=== PATIENT | male | born 1950 | race Caucasian/White ===

== ENCOUNTER 2016-05-23 20:22 | Inpatient (IN) | payer OTHER ==
[~2016-05-23] VITALS: Ht 177.8 cm; Wt 92.9 kg
[~2016-05-23 20:22] MED LIST: ADVIL200 MG PO; DIPHTHERIA TOXOID IM; GLUCOSAMINE1000 MG PO; IBUPROFEN100 M2 PO; LOW DOSE ASPIRI81 M1 PO; METOPROLOL TART25 MG PO; PREDNISONE5 MG PO; TETANUS TOXOID IM; XARELTO20 MG PO
[2016-05-23 20:50] LABS: CHLORIDE 105 mEq/L (99-109); POTASSIUM 3.8 mEq/L (3.7-5.4); SODIUM 138 mEq/L (136-147)
[2016-05-23 20:52] LABS: GLUCOSE 134 mg/dL (70-99)
[2016-05-23 20:53] LABS: ANION GAP 12 MEQ/L (2-14)
[2016-05-23 20:56] LABS: ALKALINE PHOSPHATASE 51 IU/L (3-129); GFR ESTIMATE (CALCULATED) > 59 mL/min/
[2016-05-23 20:57] LABS: UREA NITROGEN (BUN) 18 mg/dL (9-23)
[2016-05-23 21:10] LABS: HEMATOCRIT 44.3 % (38.0-50.0); MCH 32.4 PG (29.0-34.0); MCHC 36.8 G/DL (30.0-36.0); MCV 88.1 FL (86-99); MEAN PLAT.VOLUME 8.1 uM^3 (9.0-12.4); PLATELET COUNT 272 K/uL (156-360); RBC DIS.WIDTH-CV 12.5 % (11.8-14.6); RBC DIS.WIDTH-SD 39.5 % (39-53); RED BLOOD COUNT 5.03 M/uL (4.00-5.50); WHITE BLOOD COUNT 11.7 K/uL (4.1-10.2)
[2016-05-23 21:47] LABS: ADD MIUA? YES; BILIRUBIN NEGATIVE; BLOOD SMALL; COLOR YELLOW ((YELLOW)); GLUCOSE (STRIP) NEGATIVE; KETONES NEGATIVE; LEUKOCYTES NEGATIVE; NITRITE NEGATIVE; PROTEIN (STRIP) NEGATIVE; SPECIFIC GRAVITY 1.015 (1.000-1.030); UROBILINOGEN 0.2 MG/DL (0.2-1.0)
[2016-05-23 21:54] LABS: LIPASE 35 U/L (1.0-51.0)
[2016-05-23 21:58] LABS: BACTERIA NONE SEEN; CASTS NONE SEEN /LPF; CRYSTALS NONE SEEN; EPITHELIAL CELLS NONE SEEN; MUCUS NONE SEEN; RED BLOOD CELLS RARE /HPF (0-5); UCUL ADDED? NO; WHITE BLOOD CELLS NONE SEEN /HPF (0-5)
[2016-05-24] VITALS (7 sets, daily range): BP systolic 111–140; BP diastolic 69–89
[2016-05-24 02:51] LABS: METH RESISTANT S AUREUS PCR NEGATIVE (NEGATIVE)
[2016-05-24 02:55] LABS: PROBE CHECK PASS; SPECIMEN PROCESSING CONTROL PASS
[2016-05-25 04:17] VITALS: BP 123/68
[2016-05-25 07:46] LABS: BASOPHIL COUNT 0.1 K/uL (0-0.1); EOSINOPHIL (%) 2.6 % (0-5); EOSINOPHIL COUNT 0.2 K/uL (0-0.3); HEMATOCRIT 40.5 % (38.0-50.0); IMMATURE GRANULOCYTE (%) 0.2 % (0.0-0.7); LYMPHOCYTE COUNT 2.3 K/uL (1.0-2.8); MCH 32.2 PG (29.0-34.0); MCHC 35.3 G/DL (30.0-36.0); MCV 91.2 FL (86-99); MEAN PLAT.VOLUME 8.7 uM^3 (9.0-12.4); MONOCYTE (%) 10.7 % (3-12); MONOCYTE COUNT 0.9 K/uL (0-0.8); NEUTROPHIL (%) 57.1 % (45-76); NEUTROPHIL COUNT 4.6 K/uL (1.8-6.4); PLATELET COUNT 241 K/uL (156-360); RBC DIS.WIDTH-CV 12.7 % (11.8-14.6); RBC DIS.WIDTH-SD 42.6 % (39-53); RED BLOOD COUNT 4.44 M/uL (4.00-5.50)
[2016-05-25 07:50] LABS: WHITE BLOOD COUNT 8.1 K/uL (4.1-10.2)
[2016-05-25 08:00] VITALS: BP 138/74
[2016-05-25 08:02] LABS: ANION GAP 7 MEQ/L (2-14); CHLORIDE 108 MEQ/L (99-109); GFR ESTIMATE (CALCULATED) > 59 mL/min/; POTASSIUM 3.9 MEQ/L (3.7-5.4); SAMPLE HEMOLYSIS CHECK 0; SAMPLE ICTERIC CHECK 0; SAMPLE LIPEMIA CHECK 0; SODIUM 141 MEQ/L (136-147); UREA NITROGEN (BUN) 11 mg/dL (9-23)
[2016-05-25 08:04] LABS: GLUCOSE 98 mg/dL (70-99)
[2016-05-25 12:00] VITALS: BP 134/76
== END 2016-05-25 15:45 | disposition home or self-care (01) | DRG 389 ==
LOC: EME 20:22 → 2EASTP 23:45 → EDOF 23:45 → 2EASTP 05-24 01:18
PROVIDERS: Hospitalist; Internal Medicine
DX: K56.60 Unspecified intestinal obstruction (principal); I48.1 Persistent atrial fibrillation; A08.4 Viral intestinal infection, unspecified; Z79.01 Long term (current) use of anticoagulants; I10 Essential (primary) hypertension
CPT/HCPCS: 74020; 74177; 80048; 80053; 81003; 83605; 83690; 85025; 85027; 87641; 99281; 99285; G0008; J1170; J7030; S0028